=== PATIENT | male | born 1970 | race African-American/Black ===

== ENCOUNTER 2018-02-06 13:09 | Inpatient (IN) | payer MEDICAID ==
[~2018-02-06] VITALS: Ht 165.1 cm; Wt 158.9 kg
[2018-02-06] MEDS ORDERED: cefTRIAXone 1GM/10ml IVPUSH 10 ML IV ONE (20:15)
[2018-02-06] MEDS ORDERED: CLINDAMYCIN 900MG IV 50 ML IV ONE (20:15)
[2018-02-06 21:12] LABS: Basophils # (auto) 0.1 uL; Eosinophils # (auto) 0.2 uL; Eosinophils % (auto) 2.1 % (0.0-7.0); Hematocrit 44.4 % (41.0-53.0); Hemoglobin 14.8 g/dL (13.5-17.5); Lymphocytes # (auto) 2.8 uL; Mean Corpuscular Hemoglobin 29.4 pg (28.0-32.0); Mean Corpuscular Hgb Conc. 33.4 g/dL (32.0-36.0); Monocytes # (auto) 0.9 uL; Monocytes % (auto) 8.6 % (0.0-12.0); Neutrophils # (auto) 6.1 uL; Neutrophils % (auto) 60.3 % (37.0-80.0); Platelet Count (auto) 451 10^3/uL (140-450); Red Blood Cells 5.05 10^6/uL (4.5-5.90)
[2018-02-06 21:33] LABS: Albumin 2.9 g/dL (3.4-5.0); BUN/Creatinine Ratio 10.6; Bilirubin, Total 0.2 mg/dL (0.2-1.0); Calcium 8.5 mg/dL (8.5-10.1); Potassium 3.6 mmol/L (3.5-5.1); Total Protein 8.6 g/dL (6.4-8.2)
[2018-02-06 21:47] LABS: Urine Bacteria NONE SEEN /hpf (None Seen); Urine Blood Negative /uL (Negative); Urine Mucus FEW (None Seen); Urine Specific Gravity 1.029 (1.001-1.035); Urine WBC 1 /hpf (0 - 3)
[2018-02-07] MEDS ORDERED: TEMAZEPAM 15 MG CAP PO PRN (04:15)
[2018-02-07] MEDS ORDERED: HYDROcodone-ACET 5/325MG TAB PO PRN (04:15)
[2018-02-07] MEDS ORDERED: ONDANSETRON HCL 4 MG/2 ML VIAL IV PRN (04:15)
[2018-02-07] MEDS ORDERED: ACETAMINOPHEN 325 MG TAB PO PRN (04:15)
[2018-02-07] MEDS: METOPROLOL TARTRATE 25 MG TAB PO SCH ×3 (04:15→22:10)
[2018-02-07] MEDS: CLINDAMYCIN 600MG IV 50 ML IV SCH ×3 (06:13→22:10)
[2018-02-07] MEDS: ENOXAPARIN SOD 40 MG/0.4 ML SYRINGE SC SCH (10:00)
[2018-02-07] MEDS: FAMOTIDINE 20 MG TAB PO SCH ×2 (10:14→22:10)
[2018-02-07 16:47] VITALS: BP 115/70
[2018-02-07] MEDS ORDERED: IOHEXOL 300 MG/ML 100ML BOTTLE IJ ONE (18:36)
[2018-02-07] MEDS ORDERED: SODIUM CHLORIDE 0.9% 1,000 ML IV ONE (19:15)
[2018-02-07 22:00] VITALS: BP 133/80
[2018-02-08 05:24] VITALS: BP 100/58
[2018-02-08] MEDS: CLINDAMYCIN 600MG IV 50 ML IV SCH (06:42)
[2018-02-08 07:34] VITALS: BP 110/74
[2018-02-08 08:00] VITALS: BP 110/74
[2018-02-08 08:31] LABS: INR 0.97 (0.9-1.15); Partial Thromboplastin Time 29.4 sec (22.64-33.71); Prothrombin Time 10.6 sec (9.37-12.3)
[2018-02-08] MEDS ORDERED: cefTRIAXone 1GM/10ml IVPUSH 10 ML IV SCH (09:00)
[2018-02-08] MEDS: FAMOTIDINE 20 MG TAB PO SCH (09:11)
[2018-02-08] MEDS: METOPROLOL TARTRATE 25 MG TAB PO SCH (09:11)
[2018-02-08] MEDS: ENOXAPARIN SOD 40 MG/0.4 ML SYRINGE SC SCH (09:11)
[2018-02-08] MEDS ORDERED: CIPR-173 PO (09:29)
[2018-02-08] MEDS ORDERED: LISI-275 PO (09:29)
[2018-02-08] MEDS ORDERED: CIPROFLOXACIN HCL 500 MG TAB PO SCH (10:00)
[2018-02-08] MEDS ORDERED: LISINOPRIL 5 MG TAB PO SCH (10:00)
[2018-02-08 13:46] VITALS: BP 117/60
[2018-02-08 14:10] VITALS: BP 117/60
== END 2018-02-08 15:08 | disposition home or self-care (01) | DRG 501 ==
LOC: ER 13:09 → OVERFLOW 13:10 → CENTRAL 02-07 13:28
PROVIDERS: ADMIT Nurse Practitioner; ATTEND Internal Medicine
DX: N49.2 Inflammatory disorders of scrotum (principal); E44.0 Moderate protein-calorie malnutrition; L03.314 Cellulitis of groin; Z68.43 Body mass index [BMI] 50.0-59.9, adult; I10 Essential (primary) hypertension; R80.8 Other proteinuria; Z53.21 Procedure and treatment not carried out due to patient leaving prior to being seen by health care provider; N50.3 Cyst of epididymis; N50.89 Other specified disorders of the male genital organs; E66.9 Obesity, unspecified; Z80.1 Family history of malignant neoplasm of trachea, bronchus and lung; Z90.79 Acquired absence of other genital organ(s)
CPT/HCPCS: 36415; 72193; 76870; 80053; 81001; 85025; 85610; 85730; 96361; 96365; 96375; J3490